=== PATIENT | female | born 1940 | race Asian ===

== ENCOUNTER 2022-05-19 09:42 | Inpatient (IN) | payer OTHER, MEDICAID ==
[~2022-05-19] VITALS: Ht 162.6 cm; Wt 72.6 kg
--- NOTE | 2022-05-19 09:45 | NUR ---
PT BROUGHT TO BED 1 VIA [facility]
--- NOTE | 2022-05-19 09:49 | NUR ---
DR MOSQUERA AT BEDSIDE EVALUATING PATIENT
[2022-05-19 10:01] VITALS: BP_SYST 128
--- NOTE | 2022-05-19 10:16 | NUR ---
81YO F BIBA FROM HOME PRESENTING WITH ALOC. PT LAST SEEN WELL AT 8PM LAST NIGHT. PT REPORTED TO ACT UNUSUAL AND SHAKING. PT ALSO NOTED TO BE NON-VERBAL. PRE SON-IN-LAW, PT IS BEDBOUND, VERBAL BUT CONFUSED AT BASELINE. DENIES HISTORY OF FALLS. DENIES ANY CHANGES TO MEDICATIONS. PT LAST SEEN IN THIS STATE LAST YEAR AFTER INTAKE OF CODEINE. IN ER, VSS. PT CONFUSED BUT ABLE TO FOLLOW COMMANDS. GCS 12. CLEAR BREATH SOUNDS. ERMD MADE AWARE OF PT STATUS. PMH: DEMENTIA, DM, HTN ALLERGY: CODEINE
--- NOTE | 2022-05-19 10:29 | NUR ---
MRSA swab and Covid maude swab done and sent to lab.
--- NOTE | 2022-05-19 10:31 | NUR ---
Patient taken to radiology for CT scan of head and chest.
--- NOTE | 2022-05-19 10:41 | NUR ---
DANIE AND MRSA SWABS DONE. WALKED TO LAB.
[2022-05-19 11:08] LABS: BASOPHILS % (AUTO) 0.5 % (0.0-2.0); EOSINOPHILS # (AUTO) 0.2 K/uL (0.0-0.4); EOSINOPHILS % (AUTO) 2.6 % (0.0-4.0); HEMATOCRIT 42.1 % (36-48); HEMOGLOBIN 13.4 g/dL (12.0-16.0); LYMPHOCYTES # (AUTO) 3.1 K/uL (1.0-5.5); LYMPHOCYTES % (AUTO) 37.3 % (20.5-51.5); MEAN CORPUSCULAR HEMOGLOBIN 28 pg (27-31); MEAN CORPUSCULAR HGB CONC 32 % (32-36); MEAN CORPUSCULAR VOLUME 89 fL (79.0-98.0); MONOCYTES # (AUTO) 0.7 K/uL (0.0-1.0); MONOCYTES % (AUTO) 8.5 % (1.7-9.3); NEUTROPHILS # (AUTO) 4.3 K/uL (1.8-7.7); NEUTROPHILS % (AUTO) 51.1 % (40.0-70.0); PLATELET COUNT (AUTO) 158 K/uL (130-430); RED BLOOD CELL COUNT(AUTO) 4.72 MIL/uL (4.2-6.2); RED CELL DISTRIBUTION WIDTH 15.7 % (9.0-15.0); WHITE BLOOD COUNT (AUTO) 8.4 K/uL (4.8-10.8)
[2022-05-19 11:21] LABS: INR 1.1 (0.8-1.2); PROTHROMBIN TIME 11.5 SECS (9.5-12.5)
[2022-05-19] MEDS ORDERED: CALC-1263 PO (11:27)
[2022-05-19] MEDS ORDERED: HYDR-4039 PO (11:27)
[2022-05-19] MEDS ORDERED: CHOL100L (11:27)
[2022-05-19] MEDS ORDERED: NATE60TA PO (11:27)
[2022-05-19] MEDS ORDERED: SENN-295 PO (11:27)
[2022-05-19] MEDS ORDERED: LISI-209 PO (11:27)
[2022-05-19] MEDS ORDERED: CLOP75TA32 PO (11:27)
[2022-05-19] MEDS ORDERED: ROSU10TA2 PO (11:27)
[2022-05-19] MEDS ORDERED: LIDOINT TP (11:27)
[2022-05-19] MEDS ORDERED: DONE10TA44 PO (11:27)
[2022-05-19] MEDS ORDERED: PREG75CA PO (11:27)
[2022-05-19] MEDS ORDERED: ALLO100T PO (11:27)
[2022-05-19] MEDS ORDERED: INSU100V11 SQ (11:27)
[2022-05-19] MEDS ORDERED: SERT-436 PO (11:27)
[2022-05-19] MEDS ORDERED: FENO160 PO (11:27)
--- NOTE | 2022-05-19 11:28 | NUR ---
DRAINED 200CC OF YELLOW URINE VIA STRAIGHT CATH. PATIENT TOLERATED PROCEDURE WELL.
[2022-05-19 11:30] LABS: ANION GAP 2 (5-15); CHLORIDE 99 mmol/L (98-107); CREATININE 1.33 mg/dL (0.55-1.30); GLUCOSE 145 mg/dL (70-99); POTASSIUM 5.5 mmol/L (3.5-5.1); SODIUM SERUM 134 mmol/L (136-145); UREA NITROGEN, BLOOD 39 mg/dL (8-21)
[2022-05-19 11:38] LABS: ALANINE AMINOTRANSFERASE 21 U/L (12-78); ALBUMIN 2.8 g/dL (3.4-4.8); ASPARTATE AMINOTRANSFERASE 35 U/L (10-37); TOTAL BILIRUBIN 0.3 mg/dL (0.0-1.0)
[2022-05-19 11:39] LABS: ALCOHOL, BLOOD < 3 mg/dL (<10)
[2022-05-19 12:44] LABS: BILIRUBIN,URINE NEGATIVE (NEGATIVE); BLOOD, URINE NEGATIVE (NEGATIVE); CLARITY/URINE CLEAR (CLEAR); COLOR,URINE YELLOW (YELLOW); GLUCOSE,URINE NEGATIVE (NEGATIVE); KETONES,URINE NEGATIVE (NEGATIVE); LEUKOCYTE ESTERASE ,URINE TRACE (NEGATIVE); NITRITE, URINE NEGATIVE (NEGATIVE); PH,URINE 5.5 (5.0-8.0); PROTEIN URINE NEGATIVE (NEGATIVE); UROBILINOGEN,URINE 0.2 (0.2-1.0)
[2022-05-19 12:45] LABS: BARBITURATE, URINE NEGATIVE (NEG <=200); BENZODIAZEPINE, URINE NEGATIVE (NEG <=150); CANNABINOID, URINE NEGATIVE (NEG <=50); COCAINE, URINE NEGATIVE (NEG <=150); METHAMPHETAMINES SCREEN,URINE NEGATIVE (NEG <=500); OPIATE, URINE NEGATIVE (NEG <=100); PHENCYCLIDINE SCREEN,URINE NEGATIVE (NEG <=25); UR TRICYCLIC ANTIDEPRESSANTS NEGATIVE (NEG <=300); URINE AMPHETAMINE NEGATIVE (NEG <=500); URINE METHADONE NEGATIVE (NEG <=200); URINE OXYCODONE SCREEN NEGATIVE (NEG <=100); URINE PROPOXYPHENE SCREEN NEGATIVE (NEG <=300)
--- NOTE | 2022-05-19 12:55 | NUR ---
Admit bed requested Patient will be admitted to care of . Admitted to TELE unit. Diagnosis ALOC Inpatient (Yes or No) YES Observation (Yes or No) NO Orientation concerns or request close to nursing station (Yes or No) NO Covid Status NEG On vent or bipap NO Isolation requirements NO Needs a sitter NO From Home (Yes or if No enter name of facility) YES Requires Dialysis (Yes or No) NO Med Rec Completed (Yes of No) YES
[2022-05-19] MEDS ORDERED: LACTULOSE 20 GM/30 ML UDC GT ONE ×2 (13:00→15:45)
[2022-05-19] MEDS ORDERED: ALBUTEROL SULFATE 0.083% 2.5 MG/3 ML VIAL.NEB INH ONE (13:00)
[2022-05-19] MEDS ORDERED: PIPERACILLIN/TAZO 4.5 GM in NS 100 ML IV ONE (13:00)
[2022-05-19] MEDS ORDERED: DEXTROSE 50% JECT 50 ML DISP.SYRIN IVP ONE (13:00)
[2022-05-19] MEDS ORDERED: INSULIN REGULAR, HUMAN 10 UNITS/0.1 ML INJ IVP ONE (13:00)
--- NOTE | 2022-05-19 13:05 | NUR ---
RT at bedside.
--- NOTE | 2022-05-19 13:10 | NUR ---
Sharri zavala in EDM - 05/19/22 at 1429 by SDEDVT Kiarra from labs called with a critical lab value for Troponin of 92, NÉSTOR Gillespie notified.
[2022-05-19 13:12] LABS: BACTERIA,URINE None Seen /HPF (None Seen); RBC,URINE 0-3 /HPF (0-3)
[2022-05-19 13:28] VITALS: BP_SYST 128
[2022-05-19] MEDS: IPRATROPIUM/ALBUTEROL SULFATE 3 ML AMPUL.NEB (DUONEB) INH SCH ×2 (13:30→20:02)
[2022-05-19] MEDS ORDERED: 0.45% NS 500 ML IV ONE (13:30)
[2022-05-19] MEDS ORDERED: ACETAMINOPHEN 650 MG/20.3 ML UDC GT PRN (13:30)
[2022-05-19] MEDS ORDERED: DEXTROSE 50% JECT 50 ML DISP.SYRIN IVP PRN (13:30)
[2022-05-19] MEDS ORDERED: PIPERACILLIN/TAZOBACTAM 3.375 GM/VIAL (ZOSYN) IV ONE (13:54)
[2022-05-19] MEDS: PIPERACILLIN/TAZO 3.375/DEX-IS 50 ML IV SCH ×2 (14:00→21:48)
--- NOTE | 2022-05-19 14:34 | NUR ---
Patient will be admitted to care of dr rice. Admitted to tele unit. Will go to room 117b. Belongings list completed. Complete and up to date summary report printed. SBAR report to be given at bedside with opportunity for questions.
[2022-05-19 14:57] VITALS: BP_SYST 110
--- NOTE | 2022-05-19 15:00 | NUR ---
Admit patient from ER awake, speak Cantonese only, family at bedside who speak Syriac. On non rebreather mask, o2 sat at 98%. IVF of NS infusing and Iv antibiotics. Pt has GT tube flushing well. Will start feeding once feeding available. Bed alarm on. will continue to monitor.
[2022-05-19 15:10] VITALS: BP_SYST 110
--- NOTE | 2022-05-19 16:07 | NUR ---
CONSULTATION PAGED/CALLED Reason for Consultation: [] ALOC Person Who was Notified: [] DR Antwan LOCKETT Consulting Physician: [] DR Antwan LOCKETT Audio Visual Coordinator Specialty: [] NEURO Ordering Physician: [] DR HUNTER
--- NOTE | 2022-05-19 16:09 | NUR ---
CONSULTATION PAGED REASON FOR CONSULTATION:A WAS CONSULT CALLED?Y -PERSON WHO WAS NOTIFIED:TEXT MESSAGED ANNALEE DE OLIVEIRA CONSULTING PHYSICIAN:ANNALEE DE OLIVEIRA EXTRUSION PROCESS OPERATOR SPECIALTY:NEURO EXTRUSION PROCESS OPERATOR PHONE NUMBER:[phone] REQUESTING PHYSICIAN:GEORGINA GAY
--- NOTE | 2022-05-19 16:12 | NUR ---
Notes Resting, asleep, no distress noted.
[2022-05-19] MEDS ORDERED: LIDOCAINE TOPICAL OINT 5%, 35 GM TP PRN (16:15)
--- NOTE | 2022-05-19 16:39 | NUR ---
Change oxygen to 3L nasal cannula O2 sat is 95%. will continue to monitor.
--- NOTE | 2022-05-19 17:35 | NUR ---
Notes Patient desat to 88-91% on nasal cannula. Called respiratory to assess patient for oxygen need.
[2022-05-19] MEDS: NATEGLINIDE 120 MG TABLET PO SCH (17:39)
[2022-05-19 20:00] VITALS: BP_SYST 100
--- NOTE | 2022-05-19 20:00 | NUR ---
Opening Notes Received report from day nurse and upon initial visit with patient, she had pulled out her IV. Family was at bedside keeping pt safe as supplies were gathered to clean and change pt. Pt is incontinent and had a BM so she was cleaned, repositioned, and had partial linen change. Pt A&Ox1 and displays no s/s of discomfort. Fall and safety precautions initiated with bed at lowest position, bed alarm set, call light within reach.
[2022-05-19] MEDS: PREGABALIN 25 MG CAPSULE (LYRICA) PO SCH (21:44)
[2022-05-19] MEDS: DOCUSATE SODIUM 250 MG CAPSULE PO SCH (21:45)
[2022-05-19] MEDS: hydrALAZINE HCL 25 MG TABLET PO SCH (21:45)
[2022-05-19] MEDS: DONEPEZIL HCL 5 MG TABLET (ARICEPT) PO SCH (21:45)
[2022-05-20 00:54] VITALS: BP_SYST 114
[2022-05-20] MEDS: IPRATROPIUM/ALBUTEROL SULFATE 3 ML AMPUL.NEB (DUONEB) INH SCH ×4 (01:44→20:29)
[2022-05-20] MEDS: PIPERACILLIN/TAZO 3.375/DEX-IS 50 ML IV SCH ×4 (02:56→20:15)
[2022-05-20 07:07] LABS: BASOPHILS % (AUTO) 0.5 % (0.0-2.0); EOSINOPHILS # (AUTO) 0.3 K/uL (0.0-0.4); EOSINOPHILS % (AUTO) 2.8 % (0.0-4.0); HEMATOCRIT 37.4 % (36-48); HEMOGLOBIN 12.1 g/dL (12.0-16.0); LYMPHOCYTES % (AUTO) 41.9 % (20.5-51.5); MEAN CORPUSCULAR HEMOGLOBIN 28 pg (27-31); MEAN CORPUSCULAR HGB CONC 32 % (32-36); MEAN CORPUSCULAR VOLUME 88 fL (79.0-98.0); MONOCYTES # (AUTO) 0.8 K/uL (0.0-1.0); MONOCYTES % (AUTO) 8.7 % (1.7-9.3); NEUTROPHILS # (AUTO) 4.4 K/uL (1.8-7.7); NEUTROPHILS % (AUTO) 46.1 % (40.0-70.0); PLATELET COUNT (AUTO) 165 K/uL (130-430); RED BLOOD CELL COUNT(AUTO) 4.26 MIL/uL (4.2-6.2); RED CELL DISTRIBUTION WIDTH 15.6 % (9.0-15.0); WHITE BLOOD COUNT (AUTO) 9.5 K/uL (4.8-10.8)
--- NOTE | 2022-05-20 07:25 | NUR ---
Closing Notes Pt awake in bed on 5L NC, IV site intact and patent SL, GTube feeding running at ordered rate, fall and safety precautions in place.
[2022-05-20 07:31] LABS: ALANINE AMINOTRANSFERASE 11 U/L (12-78); ANION GAP 2 (5-15); ASPARTATE AMINOTRANSFERASE 25 U/L (10-37); CALCIUM 10.3 mg/dL (8.4-11.0); CHLORIDE 101 mmol/L (98-107); CREATININE 1.21 mg/dL (0.55-1.30); GLUCOSE 146 mg/dL (70-99); POTASSIUM 4.6 mmol/L (3.5-5.1); SODIUM SERUM 141 mmol/L (136-145); TOTAL BILIRUBIN 0.3 mg/dL (0.0-1.0); UREA NITROGEN, BLOOD 29 mg/dL (8-21)
[2022-05-20 08:00] VITALS: BP_SYST 155
--- NOTE | 2022-05-20 08:00 | NUR ---
Notes Awake, confuse, Patient talking in taiwanese. keeps taking off her oxygen. No distress. Bed alarm on.
[2022-05-20] MEDS: NATEGLINIDE 120 MG TABLET PO SCH ×3 (08:38→17:15)
[2022-05-20] MEDS: CLOPIDOGREL BISULFATE 75 MG TABLET PO SCH (08:38)
[2022-05-20] MEDS: SERTRALINE HCL 50 MG TABLET PO SCH (08:38)
[2022-05-20] MEDS: ATORVASTATIN 20 MG TABLET PO SCH (08:40)
[2022-05-20] MEDS: ALLOPURINOL 100 MG TABLET (ZYLOPRIM) PO SCH (08:40)
[2022-05-20] MEDS: FENOFIBRATE NANOCRYSTALLIZED 48 MG TABLET (TRICOR) PO SCH (08:40)
[2022-05-20] MEDS: hydrALAZINE HCL 25 MG TABLET PO SCH ×2 (08:42→20:16)
[2022-05-20] MEDS: PREGABALIN 25 MG CAPSULE (LYRICA) PO SCH ×3 (08:42→20:16)
[2022-05-20] MEDS: CHOLECALCIFEROL (VITAMIN D3) 2,000 UNIT TABLET PO SCH (08:43)
[2022-05-20] MEDS: lisinopriL 5 MG TABLET PO SCH (08:43)
[2022-05-20] MEDS: CALCIUM CARBONATE/VITAMIN D3 1 TAB TABLET PO SCH ×2 (08:44→20:16)
[2022-05-20] MEDS: DOCUSATE SODIUM 250 MG CAPSULE PO SCH ×2 (08:45→20:16)
[2022-05-20] MEDS ORDERED: ROSUVASTATIN CALCIUM 5 MG/TAB (CRESTOR) PO SCH (09:00)
--- NOTE | 2022-05-20 10:00 | NUR ---
Note-Unable to the EEG, pt is uncooperative.
[2022-05-20 12:47] VITALS: BP_SYST 145
[2022-05-20] MEDS: INSULIN REGULAR, HUMAN 100 UNITS/ML, 10 ML VIAL (humuLIN R) SUBCUT PRN (13:08)
[2022-05-20 16:03] VITALS: BP_SYST 149
--- NOTE | 2022-05-20 19:30 | NUR ---
Opening note Received report from day shift. Pt is awake lying in bed, family at bedside. On 5L NC tolerating well. No s/s of respiratory distress. IV site intact and patent saline lock. GT feeding running at ordered rate. Fall and safety precautions in place with bed in lowest position, bed alarm on, and call light within reach
[2022-05-20 20:00] VITALS: BP_SYST 154
[2022-05-20] MEDS: DONEPEZIL HCL 5 MG TABLET (ARICEPT) PO SCH (20:16)
--- NOTE | 2022-05-21 00:15 | NUR ---
Rounds Pt is awake, no s/s of acute distress. Fall and safety checks in place
[2022-05-21 01:05] VITALS: BP_SYST 157
[2022-05-21] MEDS: PIPERACILLIN/TAZO 3.375/DEX-IS 50 ML IV SCH ×4 (01:57→21:21)
[2022-05-21] MEDS: IPRATROPIUM/ALBUTEROL SULFATE 3 ML AMPUL.NEB (DUONEB) INH SCH ×3 (03:56→12:06)
[2022-05-21] MEDS: INSULIN REGULAR, HUMAN 100 UNITS/ML, 10 ML VIAL (humuLIN R) SUBCUT PRN (06:29)
[2022-05-21 06:47] LABS: ANION GAP 2 (5-15); CALCIUM 9.8 mg/dL (8.4-11.0); CHLORIDE 102 mmol/L (98-107); GLUCOSE 156 mg/dL (70-99); POTASSIUM 4.4 mmol/L (3.5-5.1); SODIUM SERUM 140 mmol/L (136-145); UREA NITROGEN, BLOOD 27 mg/dL (8-21)
[2022-05-21 06:48] LABS: BASOPHILS % (AUTO) 0.5 % (0.0-2.0); EOSINOPHILS # (AUTO) 0.3 K/uL (0.0-0.4); EOSINOPHILS % (AUTO) 3.5 % (0.0-4.0); HEMATOCRIT 39.8 % (36-48); HEMOGLOBIN 13.1 g/dL (12.0-16.0); LYMPHOCYTES # (AUTO) 3.4 K/uL (1.0-5.5); LYMPHOCYTES % (AUTO) 40.8 % (20.5-51.5); MEAN CORPUSCULAR HEMOGLOBIN 29 pg (27-31); MEAN CORPUSCULAR HGB CONC 33 % (32-36); MEAN CORPUSCULAR VOLUME 86 fL (79.0-98.0); MONOCYTES # (AUTO) 0.8 K/uL (0.0-1.0); MONOCYTES % (AUTO) 9.5 % (1.7-9.3); NEUTROPHILS # (AUTO) 3.8 K/uL (1.8-7.7); NEUTROPHILS % (AUTO) 45.7 % (40.0-70.0); PLATELET COUNT (AUTO) 158 K/uL (130-430); RED CELL DISTRIBUTION WIDTH 15.4 % (9.0-15.0); WHITE BLOOD COUNT (AUTO) 8.3 K/uL (4.8-10.8)
--- NOTE | 2022-05-21 07:03 | NUR ---
Closing note Pt is sleeping. On 5L NC tolerating well. No s/s of respiratory distress. IV site intact and patent saline lock. GT feeding running at ordered rate. Fall and safety precautions in place with bed in lowest position, bed alarm on, and call light within reach. All needs met throughout shift
[2022-05-21 08:14] VITALS: BP_SYST 152
[2022-05-21] MEDS: lisinopriL 5 MG TABLET PO SCH (08:28)
[2022-05-21] MEDS: FENOFIBRATE NANOCRYSTALLIZED 48 MG TABLET (TRICOR) PO SCH (08:28)
[2022-05-21] MEDS: CALCIUM CARBONATE/VITAMIN D3 1 TAB TABLET PO SCH ×2 (08:28→21:22)
[2022-05-21] MEDS: CLOPIDOGREL BISULFATE 75 MG TABLET PO SCH (08:29)
[2022-05-21] MEDS: ALLOPURINOL 100 MG TABLET (ZYLOPRIM) PO SCH (08:29)
[2022-05-21] MEDS: SERTRALINE HCL 50 MG TABLET PO SCH (08:29)
[2022-05-21] MEDS: hydrALAZINE HCL 25 MG TABLET PO SCH ×2 (08:29→21:23)
[2022-05-21] MEDS: PREGABALIN 25 MG CAPSULE (LYRICA) PO SCH ×3 (08:29→21:22)
[2022-05-21] MEDS: ATORVASTATIN 20 MG TABLET PO SCH (08:30)
[2022-05-21] MEDS: NATEGLINIDE 120 MG TABLET PO SCH ×3 (08:35→17:07)
[2022-05-21] MEDS: DOCUSATE SODIUM 250 MG CAPSULE PO SCH ×2 (08:36→21:22)
[2022-05-21] MEDS: CHOLECALCIFEROL (VITAMIN D3) 2,000 UNIT TABLET PO SCH (08:37)
--- NOTE | 2022-05-21 11:05 | NUR ---
S/W CARDIOLOGY, RE ORDERED EEG AND TECH STATED THEY WILL CALL THE OUTSIDE COMPANY TO RESCHEDULE TEST. S/W PT'S SON IN LAW NELSON, HIS [employer] CAN BE HERE TO HELP CANTONESE TRANSLATION DURING THE PROCEDURE. AWAITING FOR CALL BACK.
[2022-05-21 12:00] VITALS: BP_SYST 112
[2022-05-21 16:00] VITALS: BP_SYST 108
--- NOTE | 2022-05-21 18:45 | NUR ---
CLOSING NOTE: PT REMAINED STABLE THROUGHOUT THE SHIFT. NO DISTRESS NOTED. MRI BRAIN AND EEG WERE COMPLETED. PT'S FAMILY JUST REQUESTING TO HAVE DOCTOR CALL [facility] FOR RESULT. PLACED SIGN WITH PT'S SON IN LAW TEL NO INFO FOR MDs. WILL ALSO ENDORSE TO PM NURSE. ALL CARE NEEDS MET. FALL/SAFETY/ASPIRATION PRECAUTIONS IN PLACE. CALL LIGHT W/IN REACH.
[2022-05-21 20:23] VITALS: BP_SYST 112
[2022-05-21] MEDS: DONEPEZIL HCL 5 MG TABLET (ARICEPT) PO SCH (21:23)
[2022-05-22] MEDS: IPRATROPIUM/ALBUTEROL SULFATE 3 ML AMPUL.NEB (DUONEB) INH SCH ×5 (00:34→21:30)
[2022-05-22 01:14] VITALS: BP_SYST 120
[2022-05-22] MEDS: PIPERACILLIN/TAZO 3.375/DEX-IS 50 ML IV SCH ×4 (01:57→22:04)
[2022-05-22] MEDS: INSULIN REGULAR, HUMAN 100 UNITS/ML, 10 ML VIAL (humuLIN R) SUBCUT PRN (06:44)
[2022-05-22 06:52] LABS: BASOPHILS % (AUTO) 0.4 % (0.0-2.0); EOSINOPHILS # (AUTO) 0.3 K/uL (0.0-0.4); EOSINOPHILS % (AUTO) 4.2 % (0.0-4.0); HEMATOCRIT 40.3 % (36-48); LYMPHOCYTES # (AUTO) 2.8 K/uL (1.0-5.5); LYMPHOCYTES % (AUTO) 36.7 % (20.5-51.5); MEAN CORPUSCULAR HEMOGLOBIN 28 pg (27-31); MEAN CORPUSCULAR HGB CONC 32 % (32-36); MEAN CORPUSCULAR VOLUME 87 fL (79.0-98.0); MONOCYTES # (AUTO) 0.7 K/uL (0.0-1.0); MONOCYTES % (AUTO) 9.4 % (1.7-9.3); NEUTROPHILS # (AUTO) 3.8 K/uL (1.8-7.7); NEUTROPHILS % (AUTO) 49.3 % (40.0-70.0); PLATELET COUNT (AUTO) 166 K/uL (130-430); RED BLOOD CELL COUNT(AUTO) 4.62 MIL/uL (4.2-6.2); RED CELL DISTRIBUTION WIDTH 15.8 % (9.0-15.0); WHITE BLOOD COUNT (AUTO) 7.6 K/uL (4.8-10.8)
[2022-05-22 07:21] LABS: ANION GAP 4 (5-15); CALCIUM 9.6 mg/dL (8.4-11.0); CHLORIDE 101 mmol/L (98-107); GLUCOSE 166 mg/dL (70-99); POTASSIUM 4.4 mmol/L (3.5-5.1); SODIUM SERUM 142 mmol/L (136-145); UREA NITROGEN, BLOOD 35 mg/dL (8-21)
--- NOTE | 2022-05-22 07:40 | NUR ---
RECEIVED PATIENT IN BED RESTING COMFORTABLY, NO C/O PAIN OR DISCOMFORT, PRESENTS CALM AND COOPERATIVE. RESPIRATIONS ARE NON-LABORED 5LPM VIA NASAL CANULA. SKIN IS CLEAN, WARM AND DRY TO TOUCH. IV ACCESS IS PATENT, DRY AND SECURE, NO S/SX OF REDNESS OR SWELLING OBSERVED. G-TUBE PATENT, NO RESIDUAL OBSERVED. BED IS LOCKED IN LOWEST POSITION FOR SAFETY, FALL PRECAUTIONS INITIATED, CALL LIGHT IN REACH. NURSE WILL CONTINUE CARE AND MONITOR FOR CHANGES IN STATUS.
[2022-05-22] MEDS: NATEGLINIDE 120 MG TABLET PO SCH ×3 (08:00→18:00)
[2022-05-22] MEDS: FENOFIBRATE NANOCRYSTALLIZED 48 MG TABLET (TRICOR) PO SCH (09:48)
[2022-05-22] MEDS: hydrALAZINE HCL 25 MG TABLET PO SCH ×2 (09:49→22:22)
[2022-05-22] MEDS: PREGABALIN 25 MG CAPSULE (LYRICA) PO SCH ×3 (09:50→22:05)
[2022-05-22] MEDS: CLOPIDOGREL BISULFATE 75 MG TABLET PO SCH (09:50)
[2022-05-22] MEDS: SERTRALINE HCL 50 MG TABLET PO SCH (09:50)
[2022-05-22] MEDS: ALLOPURINOL 100 MG TABLET (ZYLOPRIM) PO SCH (09:50)
[2022-05-22] MEDS: CHOLECALCIFEROL (VITAMIN D3) 2,000 UNIT TABLET PO SCH (09:50)
[2022-05-22] MEDS: CALCIUM CARBONATE/VITAMIN D3 1 TAB TABLET PO SCH ×2 (09:51→22:07)
[2022-05-22] MEDS: lisinopriL 5 MG TABLET PO SCH (09:51)
[2022-05-22] MEDS: DOCUSATE SODIUM 250 MG CAPSULE PO SCH ×2 (09:51→22:07)
[2022-05-22] MEDS: ATORVASTATIN 20 MG TABLET PO SCH (09:55)
[2022-05-22 11:12] VITALS: BP_SYST 116
--- NOTE | 2022-05-22 13:13 | NUR ---
PATIENT IN BED RESTING COMFORTABLY, NO C/O PAIN OR DISCOMFORT. RESPIRATIONS ARE NON-LABORED. SKIN IS CLEAN, WARM AND DRY TO TOUCH. IV ACCESS IS PATENT, DRY AND SECURE, NO S/SX OF REDNESS OR SWELLING OBSERVED. G-TUBE PATENT, NO RESIDUAL OBSERVED. BED IS LOCKED IN LOWEST POSITION FOR SAFETY, CALL LIGHT IN REACH. NURSE WILL CONTINUE CARE AND MONITOR FOR CHANGES IN STATUS.
[2022-05-22 13:24] VITALS: BP_SYST 118
--- NOTE | 2022-05-22 13:38 | NUR ---
Dietitian Recommendations Current TF exceeds patient's nutritional needs * Change TF to Glucerna 1.2 @ 50 ml/hr, FWF 120 ml Q6H * Provides: 1440 kcals/day, 72 g protein/day, 1446 ml fluid/day * Meetin% of upper end of estimated caloric needs, 101% of upper end of estimated protein needs, 100% of fluid needs Please refer to Nutrition Assessment for details. Addendum: 05/22/22 at [address] Amended: Links added.
[2022-05-22 14:11] VITALS: BP_SYST 118
[2022-05-22] MEDS ORDERED: LR 500 ML IV ONE (15:45)
[2022-05-22 18:07] VITALS: BP_SYST 132
[2022-05-22 20:00] VITALS: BP_SYST 120
[2022-05-22] MEDS: DONEPEZIL HCL 5 MG TABLET (ARICEPT) PO SCH (22:07)
--- NOTE | 2022-05-23 | NUR ---
Pt now NPO for abdominal US in the AM
[2022-05-23] MEDS: IPRATROPIUM/ALBUTEROL SULFATE 3 ML AMPUL.NEB (DUONEB) INH SCH ×4 (01:00→20:29)
[2022-05-23 01:08] VITALS: BP_SYST 124
[2022-05-23] MEDS: PIPERACILLIN/TAZO 3.375/DEX-IS 50 ML IV SCH ×3 (04:16→15:04)
[2022-05-23 06:22] LABS: BILIRUBIN,URINE NEGATIVE (NEGATIVE); BLOOD, URINE NEGATIVE (NEGATIVE); CLARITY/URINE CLEAR (CLEAR); COLOR,URINE YELLOW (YELLOW); GLUCOSE,URINE NEGATIVE (NEGATIVE); KETONES,URINE NEGATIVE (NEGATIVE); LEUKOCYTE ESTERASE ,URINE NEGATIVE (NEGATIVE); NITRITE, URINE NEGATIVE (NEGATIVE); PROTEIN URINE NEGATIVE (NEGATIVE); UROBILINOGEN,URINE 0.2 (0.2-1.0)
[2022-05-23 06:51] LABS: BASOPHILS % (AUTO) 0.5 % (0.0-2.0); EOSINOPHILS # (AUTO) 0.3 K/uL (0.0-0.4); EOSINOPHILS % (AUTO) 4.1 % (0.0-4.0); HEMATOCRIT 38.9 % (36-48); HEMOGLOBIN 12.6 g/dL (12.0-16.0); LYMPHOCYTES # (AUTO) 3.2 K/uL (1.0-5.5); LYMPHOCYTES % (AUTO) 38.6 % (20.5-51.5); MEAN CORPUSCULAR HEMOGLOBIN 28 pg (27-31); MEAN CORPUSCULAR HGB CONC 32 % (32-36); MEAN CORPUSCULAR VOLUME 87 fL (79.0-98.0); MONOCYTES # (AUTO) 0.8 K/uL (0.0-1.0); MONOCYTES % (AUTO) 9.7 % (1.7-9.3); NEUTROPHILS # (AUTO) 3.9 K/uL (1.8-7.7); NEUTROPHILS % (AUTO) 47.1 % (40.0-70.0); PLATELET COUNT (AUTO) 163 K/uL (130-430); RED BLOOD CELL COUNT(AUTO) 4.47 MIL/uL (4.2-6.2); RED CELL DISTRIBUTION WIDTH 15.6 % (9.0-15.0); WHITE BLOOD COUNT (AUTO) 8.3 K/uL (4.8-10.8)
[2022-05-23 07:45] VITALS: BP_SYST 161
--- NOTE | 2022-05-23 07:45 | NUR ---
Received patient awake, and confused. Patient presents stable vital signs and do not appear distressed or in pain at this time. Patient is on O2 via nasal cannula saturation of 91%.
[2022-05-23 08:00] VITALS: BP_SYST 161
[2022-05-23 08:57] LABS: ALANINE AMINOTRANSFERASE 16 U/L (12-78); ALBUMIN 2.9 g/dL (3.4-4.8); ANION GAP 4 (5-15); ASPARTATE AMINOTRANSFERASE 26 U/L (10-37); CALCIUM 10.3 mg/dL (8.4-11.0); CHLORIDE 104 mmol/L (98-107); CREATININE 1.31 mg/dL (0.55-1.30); GLUCOSE 169 mg/dL (70-99); SODIUM SERUM 144 mmol/L (136-145); TOTAL BILIRUBIN 0.4 mg/dL (0.0-1.0); UREA NITROGEN, BLOOD 34 mg/dL (8-21)
[2022-05-23] MEDS: FENOFIBRATE NANOCRYSTALLIZED 48 MG TABLET (TRICOR) PO SCH (09:10)
[2022-05-23] MEDS: PREGABALIN 25 MG CAPSULE (LYRICA) PO SCH ×2 (09:10→15:08)
[2022-05-23] MEDS: CALCIUM CARBONATE/VITAMIN D3 1 TAB TABLET PO SCH (09:12)
[2022-05-23] MEDS: SERTRALINE HCL 50 MG TABLET PO SCH (09:12)
[2022-05-23] MEDS: hydrALAZINE HCL 25 MG TABLET PO SCH (09:12)
[2022-05-23] MEDS: lisinopriL 5 MG TABLET PO SCH (09:13)
[2022-05-23] MEDS: CHOLECALCIFEROL (VITAMIN D3) 2,000 UNIT TABLET PO SCH (09:14)
[2022-05-23] MEDS: ALLOPURINOL 100 MG TABLET (ZYLOPRIM) PO SCH (09:14)
[2022-05-23] MEDS: DOCUSATE SODIUM 250 MG CAPSULE PO SCH (09:15)
[2022-05-23] MEDS: ATORVASTATIN 20 MG TABLET PO SCH (09:19)
[2022-05-23] MEDS: CLOPIDOGREL BISULFATE 75 MG TABLET PO SCH (09:21)
[2022-05-23] MEDS: NATEGLINIDE 120 MG TABLET PO SCH ×2 (10:00→12:46)
--- NOTE | 2022-05-23 11:30 | NUR ---
Dispo code 06.
[2022-05-23 12:29] VITALS: BP_SYST 141
[2022-05-23] MEDS: INSULIN REGULAR, HUMAN 100 UNITS/ML, 10 ML VIAL (humuLIN R) SUBCUT PRN (12:45)
--- NOTE | 2022-05-23 14:56 | NUR ---
Discharge Planning: DCP faxed pt referral to [facility] [phone] DCP Addendum: 05/23/22 at 1637 by Disha Dean DP [facility] [phone]
[2022-05-23 16:16] VITALS: BP_SYST 120
[2022-05-23] MEDS ORDERED: AMOX250S64 GT (16:31)
[2022-05-23] MEDS ORDERED: LACT1CAP72 GT (16:33)
--- NOTE | 2022-05-23 18:40 | NUR ---
[facility] TRANSPORT SPOKE WITH [facility] AND AMBULANCE IS SET UP FOR [phone] GOING TO [address] [place] [id number] SON NELSON WILL BE FOLLOWING AND RECIVING PT AT HOME.
[2022-05-23 20:07] VITALS: BP_SYST 142
--- NOTE | 2022-05-23 22:03 | NUR ---
D/C Patient Patient given medication reconciliation form and D/C instructions. Exit Care provided. Patient in stable condition, ID band removed. IV catheter removed, intact and dressing applied, no active bleeding. Patient educated on pain management. All belongings sent with patient.
--- NOTE | 2022-05-24 11:06 | NUR ---
Received call from Dileep/son, declining the homehealth f/u since the pt was discharged home with PO abx, stated his is a time clock inspector career based intervention coordinator and knows how to give medication via GT.
== END 2022-05-23 22:00 | disposition home or self-care (01) | DRG 177 ==
LOC: SED 09:42 → STU 12:56
PROVIDERS: ADMIT Internal Medicine; ATTEND Internal Medicine
DX: J69.0 Pneumonitis due to inhalation of food and vomit (principal); G93.41 Metabolic encephalopathy; J96.01 Acute respiratory failure with hypoxia; N39.0 Urinary tract infection, site not specified; E87.1 Hypo-osmolality and hyponatremia; E44.1 Mild protein-calorie malnutrition; N17.9 Acute kidney failure, unspecified; E86.0 Dehydration; E87.5 Hyperkalemia; F03.90 Unspecified dementia, unspecified severity, without behavioral disturbance, psychotic disturbance, mood disturbance, and anxiety; E78.5 Hyperlipidemia, unspecified; I10 Essential (primary) hypertension; R29.810 Facial weakness; Z96.649 Presence of unspecified artificial hip joint; Z96.659 Presence of unspecified artificial knee joint; J01.90 Acute sinusitis, unspecified; E11.40 Type 2 diabetes mellitus with diabetic neuropathy, unspecified; Z20.822 Contact with and (suspected) exposure to COVID-19; Z93.1 Gastrostomy status; Z88.5 Allergy status to narcotic agent; Z79.899 Other long term (current) drug therapy; Z68.27 Body mass index [BMI] 27.0-27.9, adult; Z74.01 Bed confinement status
CPT/HCPCS: 36415; 70450-TC; 70551; 71045; 76376; 76700-TC; 80048; 80053; 80307; 81000; 81003; 82140; 82962; 83605; 84484; 85025; 85610-TC; 85730-TC; 87081; 87086; 93005; 94640; 94760; 95816; 97110-GP; 97530-GP; 99285; G0378; G0482; J1815; J2543; J7613